=== PATIENT | female | born 1965 | race Caucasian/White ===

== ENCOUNTER 2018-04-05 19:01 | Emergency (ER) | payer BC, OTHER ==
--- NOTE | 2018-04-05 19:50 | ED ---
General Adult HPI - General Chief complaint: Shortness of Breath Stated complaint: NAM Source: patient, family, EMS Mode of arrival: EMS Limitations: no limitations - History of Present Illness Initial comments: Dictation was produced using [employer] dictation software. please excuse any grammatical, word or spelling errors. Chief Complaint: 52-year-old female past medical history of COPD and asthma presents with acute onset shortness of breath. History of Present Illness: Patient was brought in by EMS. Patient was having severe shortness of breath. She called ambulance. EMS provided patient with breathing treatment and corticosteroids. Patient states that those interventions helped immensely. Patient is a history of COPD and asthma. She has history of chronic tobacco use. Denies any constitutional symptoms. Patient does state that she has had sneezing and coughing recently. The ROS documented in this emergency department record has been reviewed and confirmed by me. Those systems with pertinent positive or negative responses have been documented in the HPI. All other systems are other negative and/or noncontributory. - Related Data Home Medications Medication Instructions Recorded Confirmed Albuterol Inhaler [Ventolin Hfa 1 - 2 puff INHALATION RT-Q6H PRN 04/05/18 Inhaler] HYDROcodone/APAP 10-325MG [[place] 0.5 tab PO BID PRN 04/05/18 04/05/18 10-325] Previous Rx's Medication Instructions Recorded methylPREDNISolone [Medrol Dose 4 mg PO DIRECTED #1 pack 04/05/18 Pack] Allergies Allergy/AdvReac Type Severity Reaction Status Date / Time acetaminophen Allergy Rash/Hives Verified 04/05/18 19:40 [From Tylenol-Codeine] codeine Allergy Rash/Hives Verified 04/05/18 19:40 Review of Systems ROS Statement: Those systems with pertinent positive or pertinent negative responses have been documented in the HPI. ROS Other: All systems not noted in ROS Statement are negative. Past Medical History Past Medical History: COPD Past Surgical History: Cholecystectomy, Orthopedic Surgery, Tubal Ligation General Exam - General Exam Comments Initial Comments: PHYSICAL EXAM: General Impression: Alert and oriented x3, not in acute distress HEENT: Normocephalic atraumatic, extra-ocular movements intact, pupils equal and reactive to light bilaterally, mucous membranes moist. Cardiovascular: Heart regular rate and rhythm, S1&S2 audible, no murmurs, rubs or gallops Chest: Mild wheezing diffusely in all lung clifford Abdomen: Bowel sounds present, abdomen soft, non-tender, non-distended, no organomegaly Musculoskeletal: Pulses present and equal in all extremities, no peripheral edema Motor: Power 5/5 bilaterally, no focal deficits noted Neurological: CN II-XII grossly intact, no focal motor or sensory deficits noted Skin: Intact with no visualized rashes Psych: Normal affect and mood Limitations: no limitations Course Vital Signs 04/05/18 04/05/18 04/05/18 19:12 19:58 20:40 Temperature 98.2 F Pulse Rate 79 98 Respiratory 18 18 22 Rate Blood Pressure 130/60 O2 Sat by Pulse 94 L Oximetry Medical Decision Making - Medical Decision Making ED course: 52-year-old female presents with clinical presentation consistent with asthma/COPD exacerbation. Vital signs upon arrival are within acceptable limits. Patient was given steroids and breathing treatment by EMS. Patient states those interventions improved her. No clinical suspicion of pulmonary embolus at this time. Two-view chest x-ray was obtained. No clinical indication for laboratory evaluation at this time.Chest x-ray obtained showing no acute processes. Patient given second breathing treatment. She appears well. Patient not showing any signs of respiratory distress on reevaluation. Patient given prescription for Medrol Dosepak. She is advised follow-up with her primary care physician upon discharge. Is understandable and agreeable to plan. All questions and concerns were addressed. She does have an inhaler that she recently received. Disposition Clinical Impression: COPD exacerbation Disposition: HOME SELF-CARE Condition: Good Instructions: Asthma (ED) Prescriptions: methylPREDNISolone [Medrol Dose Pack] 4 mg PO DIRECTED #1 pack Is patient prescribed a controlled substance at d/c from ED?: No Referrals: Hamilton Smalls MD [Primary Care Provider] - 1-2 days Time of Disposition: 21:06
[2018-04-05] MEDS ORDERED: ALBUTEROL NEBULIZED 2.5 MG/3 ML INHALATION STA (19:51)
[2018-04-05] MEDS ORDERED: IPRATROPIUM 0.5 MG/2.5 ML NEBU INHALATION STA (19:51)
--- NOTE | 2018-04-05 20:06 | XR ---
EXAMINATION TYPE: XR chest 2V DATE OF EXAM: 04/05/2018 COMPARISON: NONE HISTORY: Difficulty breathing TECHNIQUE: Frontal and lateral views of the chest are obtained. FINDINGS: Heart and mediastinum are normal. There is some linear density in the anterior right middl e lobe.. Diaphragm is normal. Bony thorax is intact. IMPRESSION: There is probably some right middle lobe scarring. No acute lung disease. No change comp ared to old exam. Normal heart.
[2018-04-05 21:40] VITALS: BP 113/58; PULSE 72; RESP 17; TEMP 97.9
== END 2018-04-05 21:40 | disposition home or self-care (01) ==
LOC: EC 19:01
DX: J44.1 Chronic obstructive pulmonary disease with (acute) exacerbation (principal); Z88.5 Allergy status to narcotic agent; Z88.6 Allergy status to analgesic agent
CPT/HCPCS: 71046; 94640; 99285

== ENCOUNTER 2019-03-27 21:36 | Emergency (ER) | payer OTHER ==
[2019-03-27] MEDS ORDERED: IPRATROPIUM-ALBUTEROL 3 ML NEB INHALATION STA (22:32)
--- NOTE | 2019-03-27 22:44 | ED ---
URI HPI - General Chief Complaint: Upper Respiratory Infection Stated Complaint: NAM Time Seen by Provider: 03/27/19 21:48 Source: patient Mode of arrival: ambulatory Limitations: no limitations - History of Present Illness Initial Comments: Kaylen is a 53yo female smoker who presents to the ER today for evaluation of 1 week of upper respiratory symptoms including nasal congestion, cough and wheezing. Patient reports that she's been using her albuterol inhaler but only gets momentary relief. She denies any productive cough, fevers, chills, chest pain, palpitations, nausea or vomiting. Patient reports that she's had an albuterol healer for 3-4 years because of intermittent wheezing, patient is an every day cigarette smoker. Patient reports that she's been prescribed albuterol by her doctor but has never been referred to pulmonology or told that she has COPD emphysema or chronic bronchitis - Related Data Home Medications Medication Instructions Recorded Confirmed Albuterol Inhaler [Ventolin Hfa 2 puff INHALATION RT-Q6H PRN 04/05/18 03/27/19 Inhaler] HYDROcodone/APAP 10-325MG [[place] 0.5 tab PO BID PRN 04/05/18 03/27/19 10-325] Albuterol Nebulized [Ventolin 2.5 mg INHALATION RT-Q6H PRN 03/27/19 03/27/19 Nebulized] Previous Rx's Medication Instructions Recorded predniSONE [Deltasone] 40 mg PO DAILY 5 Days #10 tablet 03/27/19 Allergies Allergy/AdvReac Type Severity Reaction Status Date / Time acetaminophen Allergy Rash/Hives Verified 03/27/19 22:12 [From Tylenol-Codeine] codeine Allergy Rash/Hives Verified 03/27/19 22:12 Review of Systems ROS Statement: Those systems with pertinent positive or pertinent negative responses have been documented in the HPI. ROS Other: All systems not noted in ROS Statement are negative. Past Medical History Past Medical History: COPD History of Any Multi-Drug Resistant Organisms: None Reported Past Surgical History: Cholecystectomy, Orthopedic Surgery, Tubal Ligation Past Psychological History: No Psychological Hx Reported Smoking Status: Current every day smoker Past Alcohol Use History: Occasional Past Drug Use History: Marijuana General Exam - General Exam Comments Initial Comments: Physical Exam GENERAL: Patient is well-developed and well-nourished. Patient is nontoxic and well- hydrated and is in no distress. HENT: Normocephalic, Atraumatic. EYES: PERRL, EOMI PULMONARY: Expiratory wheezing in all lung clifford Tachypnea CARDIOVASCULAR: There is a regular rate and rhythm without any murmurs gallops or rubs. ABDOMEN: Soft and nontender with normal bowel sounds. SKIN: Skin is clear with no lesions or rashes and otherwise unremarkable. : Deferred NEUROLOGIC: Patient is alert and oriented x3. Moving all extremities spontaneously MUSCULOSKELETAL: Normal extremities with adequate strength and full range of motion. No lower extremity swelling or edema. No calf tenderness. PSYCHIATRIC: Normal psychiatric evaluation. Limitations: no limitations Course Vital Signs 03/27/19 03/27/19 03/27/19 21:43 22:57 23:00 Temperature 97.8 F Pulse Rate 69 72 66 Respiratory 20 20 Rate Blood Pressure 143/78 119/75 O2 Sat by Pulse 96 95 Oximetry 03/27/19 03/27/19 03/27/19 23:10 23:39 23:53 Temperature 96.9 F L Pulse Rate 64 75 88 Respiratory 18 Rate Blood Pressure 136/72 O2 Sat by Pulse Oximetry Medical Decision Making - Medical Decision Making The patient was seen and evaluated history is obtained from patient is slightly vital signs were reviewed, patient has no hypoxia or tachycardia, no fever Physical exam reveals expiratory wheezing but no crackles or rails, at this time I suspect the patient is suffering from viral URI resulting in exacerbation of likely undiagnosed COPD Patient be treated with DuoNeb and steroids Patient re-evaluated after duonebs, reports resolution of SOB, comfortable with plan for discharge home - EKG Data -: EKG Interpreted by Me EKG shows normal: sinus rhythm Rate: normal EKG Comments: EKG was obtained at 2154, rate is 66 rhythm is sinus there is normal axis, normal intervals, OK 140, QRS 90, QTc is 413 there are no acute ST elevations or depressions there is no evidence of acute ischemia or infarction. Disposition Clinical Impression: Upper respiratory tract infection, Tobacco abuse Disposition: HOME SELF-CARE Condition: Stable Instructions (If sedation given, give patient instructions): How to Stop Smoking (ED), Upper Respiratory Infection (ED) Prescriptions: predniSONE [Deltasone] 40 mg PO DAILY 5 Days #10 tablet Is patient prescribed a controlled substance at d/c from ED?: No Referrals: Hamilton Smalls MD [Primary Care Provider] - 1-2 days
[2019-03-27] MEDS ORDERED: predniSONE 20 MG TAB PO STA (22:55)
--- NOTE | 2019-03-27 23:02 | XR ---
EXAM: XR Chest, 2 Views CLINICAL HISTORY: ITS.REASON XR Reason: cough TECHNIQUE: Frontal and lateral views of the chest. COMPARISON: No relevant prior studies available. FINDINGS: Lungs: Mild perihilar/infrahilar opacities. Pleural space: No significant pleural effusion or pneumothorax. Heart: Unremarkable. Mediastinum: Unremarkable. Bones/joints: Spinal hardware noted. IMPRESSION: Mild perihilar/infrahilar opacities. Correlate clinically regarding inflammatory/infectious process.
[2019-03-27 23:54] VITALS: BP 136/72; PULSE 88; RESP 18; TEMP 96.9
== END 2019-03-27 23:53 | disposition home or self-care (01) ==
LOC: EC 21:36
DX: J06.9 Acute upper respiratory infection, unspecified (principal); Z72.0 Tobacco use; J44.9 Chronic obstructive pulmonary disease, unspecified; Z88.5 Allergy status to narcotic agent; Z88.6 Allergy status to analgesic agent; Z98.51 Tubal ligation status
CPT/HCPCS: 94644; 93005; 71046; 99285; J7512

== ENCOUNTER 2022-09-28 18:20 | Emergency (ER) | payer MEDICARE ==
[2022-09-28 18:29] VITALS: TEMP 97.5
[2022-09-28] MEDS ORDERED: ASPIRIN 81 MG PO STA (20:38)
[2022-09-28] MEDS ORDERED: SODIUM CHLORIDE 0.9% 1,000 ML IV STA (20:38)
[2022-09-28 21:26] LABS: Basophils # (A) 0.1 k/uL (0-0.2); Basophils % (A) 1 %; Eosinophils # (A) 0.3 k/uL (0-0.7); Eosinophils % (A) 3 %; HCT 43.2 % (34.0-46.0); HGB 14.4 gm/dL (11.4-16.0); Lymphocytes % (A) 18 %; MCH 29.9 pg (25.0-35.0); MCHC 33.3 g/dL (31.0-37.0); MCV 89.9 fL (80.0-100.0); Mean Platelet Volume 7.4; Monocytes # (A) 0.4 k/uL (0-1.0); Monocytes % (A) 3 %; Neutrophils # (A) 8.2 k/uL (1.3-7.7); Neutrophils % (A) 75 %; Platelet Count 315 k/uL (150-450); RBC 4.81 m/uL (3.80-5.40); WBC 11.1 k/uL (3.8-10.6)
--- NOTE | 2022-09-28 21:28 | XR ---
EXAMINATION TYPE: XR chest 2V DATE OF EXAM: 09/28/2022 9:23 PM COMPARISON: Chest radiographs from 03/27/2019 TECHNIQUE: XR chest 2V Frontal and lateral views of the chest. CLINICAL INDICATION:Female, 57 years old with history of Chest Pain; FINDINGS: Lungs/Pleura: There is no evidence of pleural effusion, focal consolidation, or pneumothorax. Pulmonary vascularity: Unremarkable. Heart/mediastinum: Cardiomediastinal silhouette is unremarkable. Musculoskeletal: No acute osseous pathology. There is fixation hardware in the lower cervical spine. IMPRESSION: No acute cardiopulmonary disease/process.
[2022-09-28 21:33] LABS: Appearance,Urine Clear (Clear); Bacteria,Urine Rare /hpf; Bilirubin,Urine Negative (Negative); Blood,Urine Negative (Negative); Color,Urine Colorless; Glucose,Urine (UA) Negative (Negative); Ketones,Urine Negative (Negative); Leukocyte Esterase,Urine Large (Negative); Nitrite,Urine Negative (Negative); PH, Urine 6.5 (5.0-8.0); Protein,Urine Negative (Negative); RBC,Urine 2 /hpf (0-5); Specific Gravity,Urine 1.002 (1.001-1.035); Squamous Epithelial Cell,Urine 2 /hpf (0-4); Urobilinogen,Urine <2.0 mg/dL (<2.0); WBC,Urine 16 /hpf (0-5)
[2022-09-28 21:40] LABS: ALT 23 U/L (4-34); African American GFR (CKD) >90 (>60 ml/min/1.73 sqM); Blood Urea Nitrogen 8 mg/dL (7-17); Calcium 9.3 mg/dL (8.4-10.2); Carbon Dioxide 23 mmol/L (22-30); Chloride 106 mmol/L (98-107); Glucose 95 mg/dL (74-99); Non-African American GFR(CKD) >90 (>60 ml/min/1.73 sqM)
[2022-09-28 21:50] LABS: Amylase 54 U/L (30-110); Anion Gap 7 mmol/L; Lipase 56 U/L (23-300); Sodium 136 mmol/L (137-145)
[2022-09-28 21:51] LABS: AST 32 U/L (14-36); Albumin 4.5 g/dL (3.5-5.0); Alkaline Phosphatase 75 U/L (38-126); Magnesium 2.1 mg/dL (1.6-2.3); Total Bilirubin 0.9 mg/dL (0.2-1.3); Total Protein 7.8 g/dL (6.3-8.2)
[2022-09-28 22:22] LABS: Partial Thromboplastin Time 27.4 sec (22.0-30.0); Prothrombin Time 10.7 sec (9.0-12.0)
--- NOTE | 2022-09-28 22:49 | ED ---
Chest Pain HPI - General Chief Complaint: Chest Pain Stated Complaint: Chest Pain Time Seen by Provider: 09/28/22 20:31 Source: patient Mode of arrival: wheelchair Limitations: no limitations - History of Present Illness Initial Comments: Patient is a 57-year-old female presenting with chief complaint of chest pain. She states that pain came on at about 4 PM. It is located primarily on the left side of the chest. Does not worsen with exertion. Patient states that the pain lasted for about 2 hours, at time of obtaining history the pain is resolved. It was pressure-like. Patient has history of COPD, admits to shortness of breath at baseline and no new changes with the chest pain. No diaphoresis, nausea, vomiting, epigastric pain. Patient does admit to some dysuria and cramping suprapubically. She is currently being treated for UTI with levofloxacin. No fever, chills, dizziness, weakness, cough, congestion, sore throat. - Related Data Home Medications Medication Instructions Recorded Confirmed Albuterol Inhaler [Ventolin Hfa 2 puff INHALATION RT-Q6H PRN 04/05/18 09/28/22 Inhaler] Fluticasone/Umeclidin/Vilanter 1 puff INHALATION RT-DAILY 09/28/22 09/28/22 [Trelegy Ellipta 100-62.5-25] Levofloxacin [Levaquin] 500 mg PO DAILY 09/28/22 09/28/22 Allergies Allergy/AdvReac Type Severity Reaction Status Date / Time acetaminophen Allergy Rash/Hives Verified 09/28/22 21:43 [From Tylenol-Codeine] codeine Allergy Rash/Hives Verified 09/28/22 21:43 Review of Systems ROS Statement: Those systems with pertinent positive or pertinent negative responses have been documented in the HPI. ROS Other: All systems not noted in ROS Statement are negative. EKG Findings - EKG Comments: EKG Findings:: Sinus rhythm ventricular rate 75. MS interval 158. QRS 81. QT 342. QTC 370. No ST deviation or T-wave inversion. EKG reviewed by myself and my attending Dr. Cole Past Medical History Past Medical History: COPD History of Any Multi-Drug Resistant Organisms: None Reported Past Surgical History: Cholecystectomy, Orthopedic Surgery, Tubal Ligation Additional Past Surgical History / Comment(s): cervical fusion Past Psychological History: No Psychological Hx Reported Smoking Status: Current every day smoker Past Alcohol Use History: Occasional Past Drug Use History: Marijuana General Exam Limitations: no limitations General appearance: alert, in no apparent distress Head exam: Present: atraumatic, normocephalic, normal inspection Eye exam: Present: normal appearance Neck exam: Present: normal inspection, full ROM Respiratory exam: Present: normal lung sounds bilaterally. Absent: respiratory distress, wheezes, rales, rhonchi, stridor Cardiovascular Exam: Present: regular rate, normal rhythm, normal heart sounds. Absent: systolic murmur, diastolic murmur, rubs, gallop, clicks GI/Abdominal exam: Present: soft. Absent: distended, tenderness, guarding, rebound, rigid Neurological exam: Present: alert, oriented X3, CN II-XII intact Psychiatric exam: Present: normal affect, normal mood Skin exam: Present: warm, dry, intact, normal color. Absent: rash Course Vital Signs 09/28/22 18:25 Temperature 97.5 F L Pulse Rate 78 Respiratory 20 Rate Blood Pressure 159/86 O2 Sat by Pulse 99 Oximetry Chest Pain MDM - MDM Was pt. sent in by a medical professional or institution (, PA, [facility], urgent care, hospital, or half-way...) When possible be specific @ -No Did you speak to anyone other than the patient for history (EMS, parent, family, police, friend...)? What history was obtained from this source @ -No Did you review nursing and triage notes (agree or disagree)? Why? @ -I reviewed and agree with nursing and triage notes Were old charts reviewed (outside hosp., previous admission, EMS record, old EKG, old radiological studies, urgent care reports/EKG's, half-way records)? Report findings @ -No old charts were reviewed Differential Diagnosis (chest pain, altered mental status, abdominal pain women, abdominal pain men, vaginal bleeding, weakness, fever, dyspnea, syncope, headache, dizziness, GI bleed, back pain, seizure, CVA, palpatations, mental health, musculoskeletal)? @ -MDM Differential Chest Pain: Stable Angina, Unstable Angina, STEMI, NSTEMI Aortic Dissection, Pneumothorax, Musculoskeletal, Esophageal Spasm GERD, Cholecystitis, Pancreatitis, Zoster This is not meant to be an all-inclusive list. EKG interpreted by me (3pts min.). @ -As above X-rays interpreted by me (1pt min.). @ -Chest x-ray shows no acute process CT interpreted by me (1pt min.). @ -None done U/S interpreted by me (1pt. min.). @ -None done What testing was considered but not performed or refused? (CT, X-rays, U/S, labs)? Why? @ -Second troponin was considered and offered to the patient, patient refused stating that she didn't want to wait for it What meds were considered but not given or refused? Why? @ -None Did you discuss the management of the patient with other professionals (professionals i.e. Dr., PA, [facility], lab, RT, psych nurse, social work msw, shrink pit operator, teacher, commissioned security officer, outpatient case manager)? Give summary @ -No Was smoking cessation discussed for >3mins.? @ -No Was critical care preformed (if so, how long)? @ -No Were there social determinants of health that impacted care today? How? (Homelessness, low income, unemployed, alcoholism, drug addiction, transportation, low edu. Level, literacy, decrease access to med. care, senior living, rehab)? @ -No Was there de-escalation of care discussed even if they declined (Discuss DNR or withdrawal of care, Hospice)? DNR status @ -No What co-morbidities impacted this encounter? (DM, HTN, Smoking, COPD, CAD, Cancer, CVA, ARF, Chemo, Hep., AIDS, mental health diagnosis, sleep apnea, morbid obesity)? @ -Smoking Was patient admitted / discharged? Hospital course, mention meds given and route, prescriptions, significant lab abnormalities, going to OR and other pertinent info. @ -Patient is a 57-year-old female presenting with chief complaint of chest pain pain started today and subsided in the ER prior to history and physical. P hysical examination is unremarkable. Lab work shows WBC 11.1, patient does currently have UTI and is being treated with levofloxacin. Troponin is less than 0.012. EKG shows no ischemic changes. Chest x-ray shows no acute process. Patient is educated on these findings. I encouraged the patient to stay for a repeat troponin, patient declined stating that she did not want to wait and would like to go home at this time. She is instructed to follow-up with her PCP and continue taking her medication as prescribed. Follow-up with PCP. Report back to ER with any new or worsening symptoms. Discussed return parameters and answered all questions. Patient conveyed verbal understanding and agreed to the plan. I discussed this case in detail with my attending Dr. Cole Undiagnosed new problem with uncertain prognosis? @ -No Drug Therapy requiring intensive monitoring for toxicity (Heparin, Nitro, Insulin, Cardizem)? @ -No Were any procedures done? @ -No Diagnosis/symptom? @ -Atypical chest pain Acute, or Chronic, or Acute on Chronic? @ -Acute Uncomplicated (without systemic symptoms) or Complicated (systemic symptoms)? @ -Uncomplicated Side effects of treatment? @ -No Exacerbation, Progression, or Severe Exacerbation? @ -No Disposition Clinical Impression: Atypical chest pain Disposition: HOME SELF-CARE Condition: Fair Instructions (If sedation given, give patient instructions): Chest Pain (ED) Additional Instructions: Follow-up with PCP. Report back to ER with any new or worsening symptoms. C ontinue taking antibiotic as prescribed. Is patient prescribed a controlled substance at d/c from ED?: No Referrals: Hamilton Smalls MD [Primary Care Provider] - 1-2 days Time of Disposition: 22:49
[2022-09-28 23:36] VITALS: BP 144/71; PULSE 67; RESP 16
== END 2022-09-28 23:00 | disposition home or self-care (01) ==
LOC: EC 18:20
DX: R07.89 Other chest pain (principal); F12.90 Cannabis use, unspecified, uncomplicated; F17.200 Nicotine dependence, unspecified, uncomplicated; J44.9 Chronic obstructive pulmonary disease, unspecified; Z88.6 Allergy status to analgesic agent; Z90.49 Acquired absence of other specified parts of digestive tract; Z98.51 Tubal ligation status
CPT/HCPCS: 36415; 71046; 80053; 81001; 82150; 83690; 83735; 84484; 85025; 85610; 85730; 87086; 93005; 96360; 99285

== ENCOUNTER 2024-06-13 15:23 | Emergency (ER) | payer MEDICARE ==
[2024-06-13] MEDS: SODIUM CHLORIDE 0.9% 1,000 ML IV STA (16:22)
[2024-06-13 16:46] LABS: Basophils # (A) 0.1 k/uL (0-0.2); Basophils % (A) 0 %; Eosinophils # (A) 0.2 k/uL (0-0.7); Eosinophils % (A) 2 %; HCT 46.9 % (34.0-46.0); HGB 15.6 gm/dL (11.4-16.0); Lymphocytes # (A) 2.1 k/uL (1.0-4.8); Lymphocytes % (A) 16 %; MCH 30.9 pg (25.0-35.0); MCHC 33.3 g/dL (31.0-37.0); MCV 92.7 fL (80.0-100.0); Monocytes # (A) 0.4 k/uL (0-1.0); Monocytes % (A) 3 %; Neutrophils # (A) 10.1 k/uL (1.3-7.7); Neutrophils % (A) 78 %; Platelet Count 389 k/uL (150-450); RBC 5.06 m/uL (3.80-5.40)
[2024-06-13 16:55] LABS: INR 0.9 (<1.2); Partial Thromboplastin Time 25.8 sec (22.0-30.0); Prothrombin Time 9.9 sec (10.0-12.5)
[2024-06-13 16:57] LABS: ALT 21 U/L (4-34); AST 21 U/L (14-36); African American GFR (CKD) >90 (>60 ml/min/1.73 sqM); Albumin 4.9 g/dL (3.5-5.0); Alkaline Phosphatase 92 U/L (38-126); Anion Gap 7 mmol/L; Blood Urea Nitrogen 7 mg/dL (7-17); Calcium 9.5 mg/dL (8.4-10.2); Carbon Dioxide 24 mmol/L (22-30); Chloride 105 mmol/L (98-107); Glucose 94 mg/dL (74-99); Non-African American GFR(CKD) >90 (>60 ml/min/1.73 sqM); Sodium 136 mmol/L (137-145); Total Bilirubin 0.7 mg/dL (0.2-1.3)
--- NOTE | 2024-06-13 17:25 | XR ---
EXAMINATION TYPE: XR chest 2V DATE OF EXAM: 06/13/2024 4:36 PM COMPARISON: Chest radiographs from 09/28/2022 TECHNIQUE: XR chest 2V Frontal and lateral views of the chest. CLINICAL INDICATION:Female, 59 years old with history of Weakness; FINDINGS: Lungs/Pleura: There is no evidence of pleural effusion, focal consolidation, or pneumothorax. Pulmonary vascularity: Unremarkable. Heart/mediastinum: Cardiomediastinal silhouette is unremarkable. Musculoskeletal: No acute osseous pathology. Partial visualization of cervical fusion hardware. Other: Surgical clips within the right upper abdomen. IMPRESSION: No acute cardiopulmonary disease/process. [facility], , 06/13/2024 5:23 PM
[2024-06-13 17:36] LABS: Appearance,Urine Clear (Clear); Bacteria,Urine Rare /hpf; Bilirubin,Urine Negative (Negative); Blood,Urine Negative (Negative); Color,Urine Colorless; Glucose,Urine (UA) Negative (Negative); Ketones,Urine Trace (Negative); Leukocyte Esterase,Urine Large (Negative); Nitrite,Urine Negative (Negative); PH, Urine 5.5 (5.0-8.0); Protein,Urine Negative (Negative); RBC,Urine 1 /hpf (0-5); Specific Gravity,Urine 1.001 (1.001-1.035); Squamous Epithelial Cell,Urine <1 /hpf (0-4); Urobilinogen,Urine <2.0 mg/dL (<2.0); WBC,Urine 8 /hpf (0-5)
--- NOTE | 2024-06-13 18:48 | CT ---
EXAMINATION TYPE: CT brain wo con DATE OF EXAM: 06/13/2024 6:21 PM COMPARISON: None. CLINICAL INDICATION: Female, 59 years old with history of weakness, Pt to ED for dizziness and heart palps x two days. Also reports tingling/aching in R arm that has been intermittent for the last two weeks. TECHNIQUE: Brain: Axial CT images of the brain were obtained with coronal and sagittal reformats created and rev iewed. Contrast used: None. Oral contrast used: None. CT DLP: 1080.4 mGycm, Automated exposure control for dose reduction was used. FINDINGS: Brain: Extra-axial spaces: No abnormal extra-axial fluid collections. Ventricular system: Within normal limits Cerebral parenchyma: No acute intraparenchymal hemorrhage or mass effect. The barth-white junction is well differentiated. Cerebellum: Unremarkable. Mass effect: No evidence of midline shift. Intracranial vasculature: unremarkable Soft tissues: Normal. Calvarium/osseous structures: No depressed skull fracture. Paranasal sinuses and mastoid air cells: Mild scattered paranasal sinus disease. Visualized orbits: Orbital contents are intact. IMPRESSION: No acute intracranial process. [facility], , 06/13/2024 6:46 PM
--- NOTE | 2024-06-13 19:13 | ED ---
General Adult HPI - General Chief complaint: Neuro Symptoms/Deficit Stated complaint: Heart Palpitations Time Seen by Provider: 06/13/24 15:48 Source: patient, family, RN notes reviewed, old records reviewed Mode of arrival: ambulatory Limitations: no limitations - History of Present Illness Initial comments: Patient is a 59-year-old female presents emergency department with paresthesias. Course of steroids and thinks this has been causing perioral paresthesias as well as right finger paresthesias. Patient has also been feeling heart pal pitations feeling slightly agitated. She thinks is from the steroids but wants to be evaluated. Called the urgent care who originally placed her on antibiotics for MRI. Placed on nystatin for oral thrush. Called urgent care who sent her here for further evaluation. Denies any weakness or any sensory deficits otherwise. No other acute complaints. Presents for further evaluation. Has a history of COPD.Denies chest pain or shortness of breath. Denies fevers, chills, cough. Thrush has resolved. No other acute complaints. - Related Data Home Medications Medication Instructions Recorded Confirmed Albuterol Inhaler [Ventolin Hfa 2 puff INHALATION RT-Q6H PRN 04/05/18 09/28/22 Inhaler] Fluticasone/Umeclidin/Vilanter 1 puff INHALATION RT-DAILY 09/28/22 09/28/22 [Trelegy Ellipta 100-62.5-25] Levofloxacin [Levaquin] 500 mg PO DAILY 09/28/22 09/28/22 Allergies Allergy/AdvReac Type Severity Reaction Status Date / Time acetaminophen Allergy Rash/Hives Verified 09/28/22 21:43 [From Tylenol-Codeine] codeine Allergy Rash/Hives Verified 09/28/22 21:43 Review of Systems ROS Statement: Those systems with pertinent positive or pertinent negative responses have been documented in the HPI. Review of Systems: CONST: Denies fever EYES: Denies blurry vision ENT: Denies nasal congestion C/V: Endorses heart palpitation RESP: Denies shortness of breath GI: Denies abdominal pain : Denies dysuria SKIN: Denies rash. MSK: Denies joint pain. NEURO: Endorses paresthesias ROS Other: All systems not noted in ROS Statement are negative. Past Medical History Past Medical History: COPD History of Any Multi-Drug Resistant Organisms: None Reported Past Surgical History: Cholecystectomy, Orthopedic Surgery, Tubal Ligation Additional Past Surgical History / Comment(s): cervical fusion Past Psychological History: No Psychological Hx Reported Smoking Status: Current every day smoker Past Alcohol Use History: Occasional Past Drug Use History: Marijuana General Exam - General Exam Comments Initial Comments: General: Appears in no acute distress. HEAD: Normal with no signs of head trauma. EYES: EOMI ENT: Hearing grossly intact, normal oropharynx. RESPIRATORY: Clear breath sounds bilaterally. No wheezes, rales, or rhonchi. C/V: Regular rate and rhythm. S1 and S2 auscultated, no edema, peripheral pulses 2+ and intact throughout ABD: Abd is soft, nontender, nondistended EXT: No obvious deformity. SKIN: No rashes or lesions observed on exposed skin. NEURO: Alert and oriented x 4. Cranial nerves II-XII intact. No focal sensory or strength deficits. GCS 15. NIH of 0. No elicited sensory deficits. Limitations: no limitations Course Vital Signs 06/13/24 06/13/24 06/13/24 15:32 16:29 17:15 Temperature 97.6 F Pulse Rate 68 67 67 Respiratory 18 18 17 Rate Blood Pressure 152/74 133/62 135/67 O2 Sat by Pulse 100 97 97 Oximetry 06/13/24 06/13/24 18:07 19:41 Temperature 98.1 F Pulse Rate 78 71 Respiratory 16 18 Rate Blood Pressure 126/68 120/64 O2 Sat by Pulse 100 97 Oximetry Medical Decision Making - Medical Decision Making Was pt. sent in by a medical professional or institution (, PA, [facility] [employer], urgent care, hospital, or longterm...) When possible be specific @ -Sent by urgent care for evaluation. Did you speak to anyone other than the patient for history (EMS, parent, family, police, friend...)? What history was obtained from this source @ -No Did you review nursing and triage notes (agree or disagree)? Why? @ -I reviewed and agree with nursing and triage notes Were old charts reviewed (outside hosp., previous admission, EMS record, old EKG, old radiological studies, urgent care reports/EKG's, longterm records)? Report findings @ -No old charts were reviewed Differential Diagnosis (chest pain, altered mental status, abdominal pain women, abdominal pain men, vaginal bleeding, weakness, fever, dyspnea, syncope, headache, dizziness, GI bleed, back pain, seizure, CVA, palpatations, mental health, musculoskeletal)? @ -Paresthesias, electrolyte abnormality, steroid reaction, heart palpitations. This list is not all inclusive. EKG interpreted by me (3pts min.). @ -As above X-rays interpreted by me (1pt min.). @ -Chest x-ray reveals no obvious acute cardiopulmonary process. CT interpreted by me (1pt min.). @ -CT brain reveals no obvious acute intracranial process. U/S interpreted by me (1pt. min.). @ -None done What testing was considered but not performed or refused? (CT, X-rays, U/S, labs)? Why? @ -None What meds were considered but not given or refused? Why? @ -None Did you discuss the management of the patient with other professionals (professionals i.e. , PA, H[employer], lab, RT, psych nurse, social psychologist, hrbp, teacher, logistics officer, briefcase sewer)? Give summary @ -No Was smoking cessation discussed for >3mins.? @ -No Was critical care preformed (if so, how long)? @ -No Were there social determinants of health that impacted care today? How? (Homelessness, low income, unemployed, alcoholism, drug addiction, transportation, low edu. Level, literacy, decrease access to med. care, senior care, rehab)? @ -No Was there de-escalation of care discussed even if they declined (Discuss DNR or withdrawal of care, Hospice)? DNR status @ -No What co-morbidities impacted this encounter? (DM, HTN, Smoking, COPD, CAD, Cancer, CVA, ARF, Chemo, Hep., AIDS, mental health diagnosis, sleep apnea, morbid obesity)? @ -Recent steroid use. Was patient admitted / discharged? Hospital course, mention meds given and route, prescriptions, significant lab abnormalities, going to OR and other pertinent info. @ -Patient presents emergency department complaining of heart palpitations, paresthesias for few days and was sent in by urgent care for further evaluation. We will obtain CT brain, laboratory studies, as well as EKG. Patient was in agreement this plan. Vital signs are within acceptable limits. GCS is 15. NIH is 0. Patient was in agreement this plan. Patient will be administered IV fluids. I did discuss with her and I do believe this is all likely secondary to steroid use which she is no longer taking and stopped yesterday. She does states she feels better today. She was in agreement this plan. Vitals within acceptable limits. EKG shows no signs of acute ischemia. Brain CT and chest x-ray unremarkable. Laboratory studies unremarkable. Urinalysis still shows white blood cells as well as leuk esterase but she is currently on antibiotics for UTI. Discussed results with patient. She is feeling improved. Paresthesias have resolved. Was in agreement plan for discharge home at this time. Patient was in agreement this plan. Strict return precautions discussed. Workup was ultimately unremarkable. Recommended to stop steroid use which she did yesterday. I instructed the patient to follow up with their PCP in the next 1-3 days. I explained that the patient should return to the emergency department if they experience any worsening symptoms. Strict return precautions were discussed with the patient. The patient expressed understanding of these instructions. I answered all questions that the patient had. The patient was discharged home in good condition with their prescriptions and follow up information. Undiagnosed new problem with uncertain prognosis? @ -No Drug Therapy requiring intensive monitoring for toxicity (Heparin, Nitro, Insulin, Cardizem)? @ -No Were any procedures done? @ -No Diagnosis/symptom? @ -Facial paresthesias, arm paresthesia Acute, or Chronic, or Acute on Chronic? @ -Acute Uncomplicated (without systemic symptoms) or Complicated (systemic symptoms)? @ -Uncomplicated Side effects of treatment? @ -No Exacerbation, Progression, or Severe Exacerbation? @ -No Poses a threat to life or bodily function? How? (Chest pain, [place], [place], pneumonia, PE, COPD, DKA, ARF, appy, cholecystitis, CVA, Diverticulitis, Homicidal, Suicidal, threat to staff... and all critical care pts) @ -Unlikely - Lab Data Result diagrams: 06/13/24 16:19 06/13/24 16:19 Lab Results 06/13/24 06/13/24 06/13/24 Range/Units 16:19 16:19 16:19 WBC 13.0 H (3.8-10.6) k/uL RBC 5.06 (3.80-5.40) m/uL Hgb 15.6 (11.4-16.0) gm/dL Hct 46.9 H (34.0-46.0) % MCV 92.7 (80.0-100.0) fL MCH 30.9 (25.0-35.0) pg MCHC 33.3 (31.0-37.0) g/dL RDW 13.0 (11.5-15.5) % Plt Count 389 (150-450) k/uL MPV 7.0 Neutrophils % 78 % Lymphocytes % 16 % Monocytes % 3 % Eosinophils % 2 % Basophils % 0 % Neutrophils # 10.1 H (1.3-7.7) k/uL Lymphocytes # 2.1 (1.0-4.8) k/uL Monocytes # 0.4 (0-1.0) k/uL Eosinophils # 0.2 (0-0.7) k/uL Basophils # 0.1 (0-0.2) k/uL PT 9.9 L (10.0-12.5) sec INR 0.9 (<1.2) APTT 25.8 (22.0-30.0) sec Sodium 136 L (137-145) mmol/L Potassium 4.0 (3.5-5.1) mmol/L Chloride 105 (98-107) mmol/L Carbon Dioxide 24 (22-30) mmol/L Anion Gap 7 mmol/L BUN 7 (7-17) mg/dL Creatinine 0.68 (0.52-1.04) mg/dL Est GFR (CKD-EPI)AfAm >90 (>60 ml/min/1.73 sqM) Est GFR (CKD-EPI)NonAf >90 (>60 ml/min/1.73 sqM) Glucose 94 (74-99) mg/dL Calcium 9.5 (8.4-10.2) mg/dL Magnesium 2.0 (1.6-2.3) mg/dL Total Bilirubin 0.7 (0.2-1.3) mg/dL AST 21 (14-36) U/L ALT 21 (4-34) U/L Alkaline Phosphatase 92 (38-126) U/L Troponin I (0.000-0.034) ng/mL Total Protein 8.0 (6.3-8.2) g/dL Albumin 4.9 (3.5-5.0) g/dL Urine Color Urine Appearance (Clear) Urine pH (5.0-8.0) Ur Specific [place] (1.001-1.035) Urine Protein (Negative) Urine Glucose (UA) (Negative) Urine Ketones (Negative) Urine Blood (Negative) Urine Nitrite (Negative) Urine Bilirubin (Negative) Urine Urobilinogen (<2.0) mg/dL Ur Leukocyte Esterase (Negative) Urine RBC (0-5) /hpf Urine WBC (0-5) /hpf Ur Squamous Epith Cells (0-4) /hpf Urine Bacteria (None) /hpf 06/13/24 06/13/24 Range/Units 16:19 17:19 WBC (3.8-10.6) k/uL RBC (3.80-5.40) m/uL Hgb (11.4-16.0) gm/dL Hct (34.0-46.0) % MCV (80.0-100.0) fL MCH (25.0-35.0) pg MCHC (31.0-37.0) g/dL RDW (11.5-15.5) % Plt Count (150-450) k/uL MPV Neutrophils % % Lymphocytes % % Monocytes % % Eosinophils % % Basophils % % Neutrophils # (1.3-7.7) k/uL Lymphocytes # (1.0-4.8) k/uL Monocytes # (0-1.0) k/uL Eosinophils # (0-0.7) k/uL Basophils # (0-0.2) k/uL PT (10.0-12.5) sec INR (<1.2) APTT (22.0-30.0) sec Sodium (137-145) mmol/L Potassium (3.5-5.1) mmol/L Chloride (98-107) mmol/L Carbon Dioxide (22-30) mmol/L Anion Gap mmol/L BUN (7-17) mg/dL Creatinine (0.52-1.04) mg/dL Est GFR (CKD-EPI)AfAm (>60 ml/min/1.73 sqM) Est GFR (CKD-EPI)NonAf (>60 ml/min/1.73 sqM) Glucose (74-99) mg/dL Calcium (8.4-10.2) mg/dL Magnesium (1.6-2.3) mg/dL Total Bilirubin (0.2-1.3) mg/dL AST (14-36) U/L ALT (4-34) U/L Alkaline Phosphatase (38-126) U/L Troponin I <0.012 (0.000-0.034) ng/mL Total Protein (6.3-8.2) g/dL Albumin (3.5-5.0) g/dL Urine Color Colorless Urine Appearance Clear (Clear) Urine pH 5.5 (5.0-8.0) Ur Specific [place] 1.001 (1.001-1.035) Urine Protein Negative (Negative) Urine Glucose (UA) Negative (Negative) Urine Ketones Trace H (Negative) Urine Blood Negative (Negative) Urine Nitrite Negative (Negative) Urine Bilirubin Negative (Negative) Urine Urobilinogen <2.0 (<2.0) mg/dL Ur Leukocyte Esterase Large H (Negative) Urine RBC 1 (0-5) /hpf Urine WBC 8 H (0-5) /hpf Ur Squamous Epith Cells <1 (0-4) /hpf Urine Bacteria Rare H (None) /hpf - EKG Data -: EKG Interpreted by Me EKG Comments: 12-lead Electrocardiogram Interpretation Note EKG was reviewed and interpreted by myself. 12-lead ECG performed at 1549 is interpreted by me as revealing normal sinus rhythm at a rate of 68 beats per minute. Bernard is normal. TN interval is 148 ms, QRS duration is 88 ms, QTc is 395 ms.. There were no ST or T wave abnormalities to suggest myocardial ischemia or injury. R wave progression across the precordium was satisfactory. By my interpretation this EKG is non-diagnostic for acute ischemia. Disposition Clinical Impression: Facial paresthesia, Arm paresthesia, right Disposition: ADMITTED IP TO THIS HOSP Condition: Stable Additional Instructions: Symptoms likely related to steroid use. Return the emergency department for any worsening symptoms. Avoid any steroid use. If any worsening symptoms. Complete course of antibiotics for UTI. Follow-up with PCP in the next 1 to 3 days. Is patient prescribed a controlled substance at d/c from ED?: No Referrals: Pawel aBrrientos MD [Primary Care Provider] - 1-2 days Time of Disposition: 19:10
[2024-06-13 19:44] VITALS: BP 120/64; PULSE 71; RESP 18; TEMP 98.1
== END 2024-06-13 19:50 | disposition other institution (70) ==
LOC: EC 15:23
DX: R00.2 Palpitations (principal); F17.200 Nicotine dependence, unspecified, uncomplicated; Z88.5 Allergy status to narcotic agent; Z88.6 Allergy status to analgesic agent; Z90.49 Acquired absence of other specified parts of digestive tract
CPT/HCPCS: 36415; 70450; 71046; 80053; 81001; 83735; 84484; 85025; 85610; 85730; 93005; 96360; 96361; 99285